=== PATIENT | male | born 1940 | race Caucasian/White ===

== ENCOUNTER 2018-11-26 01:32 | Inpatient (IN) | payer BC, MEDICARE ==
[~2018-11-26] VITALS: Ht 180.3 cm; Wt 71.8 kg
[2018-11-26] MEDS ORDERED: BISACODYL 10 MG SUPP PR PRN (05:30)
[2018-11-26] MEDS ORDERED: ONDANSETRON 2MG/ML, 2ML IVPush PRN (05:30)
[2018-11-26] MEDS: PLEASE ENTER ALLERGIES MC SCH ×2 (05:30→11:54)
[2018-11-26 05:54] VITALS: BP 121/64
[2018-11-26 06:21] LABS: MEAN CORPUSCULAR HEMOGLOBIN 28.1 pg (27.5-34.5); MEAN CORPUSCULAR HGB CONC 32.2 g/dL (33.2-36.2); MEAN CORPUSCULAR VOLUME 87.3 fL (81-97); MEAN PLATELET VOLUME 7.9 fL (7.4-10.4); PLATELET COUNT 373 x10^3/uL (130-400); RED BLOOD COUNT 4.42 x10^6/uL (4.38-5.82); RED CELL DISTRIBUTION WIDTH 14.9 % (9.4-14.8)
[2018-11-26 06:27] LABS: ALBUMIN 2.4 g/dL (3.4-5.0); ANION GAP 7 mmol/L (5-15); CALCIUM 8.8 mg/dL (8.5-10.1); CHLORIDE 99 mmol/L (98-107); CREATININE 0.77 mg/dL (0.7-1.3)
[2018-11-26] MEDS: CEFTRIAXONE PMX 1GM/50ML 50 ML IV SCH (06:28)
[2018-11-26] MEDS: ENOXAPARIN 40 MG/0.4 ML SQ SCH (06:29)
[2018-11-26] MEDS: ACETAMINOPHEN 325 MG TABLET PO PRN (06:29)
[2018-11-26 06:44] LABS: HEMOGLOBIN A1C 14.2 % (4.2-6.3); MD YES
[2018-11-26 06:45] LABS: BAND#(MANUAL) 0.97 x10^3/uL; BANDS%(MANUAL) 5 % (0-7); LYMPH#(MANUAL) 0.19 x10^3/uL (1-3.4); LYMPHS% (MANUAL) 1 % (22-44); MONOS#(MANUAL) 1.35 x10^3/uL (0.3-2.7); MONOS% (MANUAL) 7 % (2-9); SEG#(MANUAL) 16.79 x10^3/uL (1.8-6.8); SEGS% (MANUAL) 87 % (42-75)
[2018-11-26 06:46] LABS: <PLATELET ESTIMATE> ADEQUATE; <PLT MORPHOLOGY> NORMAL PLT MORPH; <RBC MORPHOLOGY> NORMAL
[2018-11-26] MEDS: INSULIN LISPRO 100 UNITS/ML, PEN SQ-INSULIN SCH ×4 (06:48→21:22)
[2018-11-26 07:02] VITALS: BP 119/64
[2018-11-26] MEDS: LACTATED RINGERS 1,000 ML IV SCH ×2 (07:15→12:00)
[2018-11-26] MEDS: SENNA/DOCUSATE TABLET PO SCH (09:34)
[2018-11-26 12:51] VITALS: BP 120/74
[2018-11-26 15:15] LABS: CULTURE INDICATED? YES; MICROSCOPIC INDICATED
[2018-11-26] MEDS: GUAIFENESIN 200 MG TABLET PO SCH ×2 (16:45→21:10)
[2018-11-26 17:18] LABS: THYROID STIMULATING HORMONE 0.911 mIU/L (0.358-3.740)
[2018-11-26] MEDS: DOXYCYCLINE 100 MG in DEXTROSE 5% 250 ML IV SCH (18:04)
[2018-11-26 19:31] VITALS: BP 112/62
[2018-11-26] MEDS: FLUTICASONE NASAL SPRAY 16GM NAS SCH (21:00)
[2018-11-26] MEDS: SODIUM CHLORIDE NASAL SPRAY 45ML BOTTLE NAS SCH (21:10)
[2018-11-27] MEDS: LACTATED RINGERS 1,000 ML IV SCH (00:11)
[2018-11-27 00:19] VITALS: BP 121/74
[2018-11-27 05:14] LABS: MEAN CORPUSCULAR HEMOGLOBIN 27.5 pg (27.5-34.5); MEAN CORPUSCULAR HGB CONC 31.9 g/dL (33.2-36.2); MEAN CORPUSCULAR VOLUME 86.3 fL (81-97); MEAN PLATELET VOLUME 8.1 fL (7.4-10.4); PLATELET COUNT 351 x10^3/uL (130-400); RED BLOOD COUNT 4.28 x10^6/uL (4.38-5.82); RED CELL DISTRIBUTION WIDTH 15.3 % (9.4-14.8)
[2018-11-27 05:33] LABS: CHLORIDE 97 mmol/L (98-107)
[2018-11-27 05:39] LABS: CALCIUM 8.7 mg/dL (8.5-10.1); CREATININE 0.77 mg/dL (0.7-1.3)
[2018-11-27 05:43] LABS: BASOPHILS # (AUTO) 0.08 x10^3/uL (0-0.1); BASOPHILS % (AUTO) 0 % (0-1); EOSINOPHILS # (AUTO) 0.05 x10^3/uL (0-0.4); EOSINOPHILS % (AUTO) 0 % (1-7); LYMPHOCYTES # (AUTO) 1.11 x10^3/uL (1-3.4); LYMPHOCYTES % (AUTO) 6 % (22-44); MD SCAN; MONOCYTES # (AUTO) 1.23 x10^3/uL (0.2-0.8); MONOCYTES % (AUTO) 7 % (2-9); NEUTROPHILS # (AUTO) 15.82 x10^3/uL (1.8-6.8); NEUTROPHILS % (AUTO) 87 % (42-75)
[2018-11-27] MEDS: GUAIFENESIN 200 MG TABLET PO SCH ×4 (06:00→21:34)
[2018-11-27] MEDS: DOXYCYCLINE 100 MG in DEXTROSE 5% 250 ML IV SCH ×2 (06:00→17:08)
[2018-11-27] MEDS: CEFTRIAXONE PMX 1GM/50ML 50 ML IV SCH (06:08)
[2018-11-27 06:14] LABS: ANION GAP 5 mmol/L (5-15)
[2018-11-27] MEDS: ENOXAPARIN 40 MG/0.4 ML SQ SCH (06:30)
[2018-11-27 08:03] VITALS: BP 152/78
[2018-11-27] MEDS: SODIUM CHLORIDE NASAL SPRAY 45ML BOTTLE NAS SCH ×2 (08:58→21:36)
[2018-11-27] MEDS: INSULIN LISPRO 100 UNITS/ML, PEN SQ-INSULIN SCH ×4 (08:59→21:35)
[2018-11-27] MEDS: SENNA/DOCUSATE TABLET PO SCH (08:59)
[2018-11-27] MEDS: FLUTICASONE NASAL SPRAY 16GM NAS SCH ×2 (10:06→21:35)
[2018-11-27 10:07] LABS: OCCULT BLOOD NEGATIVE (NEGATIVE)
[2018-11-27] MEDS ORDERED: ALBUTEROL/IPRATROPIUM 2.5MG/0.5MG, 3 ML NPPB PRN (11:00)
[2018-11-27 13:51] VITALS: BP 123/72
[2018-11-27] MEDS ORDERED: PHARMACOKINETIC CONSULTATION MC ONE (14:00)
[2018-11-27] MEDS ORDERED: PHARMACOKINETIC MONITORING MC PRN (14:00)
[2018-11-27] MEDS ORDERED: VANCOMYCIN PER PHARMACY MC PRN (14:00)
[2018-11-27] MEDS ORDERED: VANCOMYCIN 1,300 MG in SODIUM CHLORIDE 0.9% 250 ML IV SCH (14:30)
[2018-11-27 17:35] VITALS: BP 117/71
[2018-11-27 19:08] VITALS: BP 119/71
[2018-11-27] MEDS: INSULIN GLARGINE 100 UNITS/ML, PEN SQ-INSULIN SCH (21:57)
[2018-11-28 00:41] VITALS: BP 134/74
[2018-11-28] MEDS: ACETAMINOPHEN 325 MG TABLET PO PRN ×2 (01:41→15:10)
[2018-11-28 04:07] LABS: ANION GAP 3 mmol/L (5-15); CALCIUM 8.7 mg/dL (8.5-10.1); CHLORIDE 99 mmol/L (98-107); CREATININE 0.69 mg/dL (0.7-1.3)
[2018-11-28 04:13] LABS: TROPONIN I < 0.015 ng/mL (0.000-0.045)
[2018-11-28 04:15] LABS: BASOPHILS # (AUTO) 0.01 x10^3/uL (0-0.1); BASOPHILS % (AUTO) 0 % (0-1); EOSINOPHILS # (AUTO) 0.08 x10^3/uL (0-0.4); EOSINOPHILS % (AUTO) 1 % (1-7); LYMPHOCYTES # (AUTO) 1.26 x10^3/uL (1-3.4); LYMPHOCYTES % (AUTO) 8 % (22-44); MD NO; MEAN CORPUSCULAR HEMOGLOBIN 27.8 pg (27.5-34.5); MEAN CORPUSCULAR VOLUME 86.8 fL (81-97); MEAN PLATELET VOLUME 7.8 fL (7.4-10.4); MONOCYTES # (AUTO) 1.03 x10^3/uL (0.2-0.8); MONOCYTES % (AUTO) 7 % (2-9); NEUTROPHILS # (AUTO) 13.13 x10^3/uL (1.8-6.8); NEUTROPHILS % (AUTO) 85 % (42-75); PLATELET COUNT 380 x10^3/uL (130-400); RED BLOOD COUNT 4.44 x10^6/uL (4.38-5.82); RED CELL DISTRIBUTION WIDTH 15.1 % (9.4-14.8)
[2018-11-28] MEDS: ENOXAPARIN 40 MG/0.4 ML SQ SCH (06:09)
[2018-11-28] MEDS: GUAIFENESIN 200 MG TABLET PO SCH ×4 (06:09→20:54)
[2018-11-28] MEDS: DOXYCYCLINE 100 MG in DEXTROSE 5% 250 ML IV SCH (06:09)
[2018-11-28] MEDS ORDERED: ALBUTEROL/IPRATROPIUM 2.5MG/0.5MG, 3 ML NPPB PRN (07:00)
[2018-11-28 07:58] VITALS: BP 127/73
[2018-11-28] MEDS: SODIUM CHLORIDE NASAL SPRAY 45ML BOTTLE NAS SCH ×2 (09:00→20:58)
[2018-11-28] MEDS: SENNA/DOCUSATE TABLET PO SCH (09:01)
[2018-11-28] MEDS: FLUTICASONE NASAL SPRAY 16GM NAS SCH ×2 (09:02→20:58)
[2018-11-28] MEDS: INSULIN LISPRO 100 UNITS/ML, PEN SQ-INSULIN SCH ×4 (09:02→20:55)
[2018-11-28 10:01] LABS: TROPONIN I < 0.015 ng/mL (0.000-0.045)
[2018-11-28 14:08] VITALS: BP 147/79
[2018-11-28] MEDS: CEFAZOLIN 2,000 MG in SODIUM CHLORIDE 0.9% 50 ML IV SCH ×2 (15:49→23:50)
[2018-11-28] MEDS ORDERED: OMNIPAQUE 350 MG/ML, 150 ML BOTTLE ONE (17:28)
[2018-11-28 19:09] VITALS: BP 152/86
[2018-11-28] MEDS: INSULIN GLARGINE 100 UNITS/ML, PEN SQ-INSULIN SCH (20:54)
[2018-11-29 02:30] VITALS: BP 115/60
[2018-11-29] MEDS: ENOXAPARIN 40 MG/0.4 ML SQ SCH (05:56)
[2018-11-29] MEDS: GUAIFENESIN 200 MG TABLET PO SCH ×4 (05:56→21:00)
[2018-11-29 06:10] LABS: HCT (SEDRATE) 37.1 % (39.2-51.8)
[2018-11-29 06:11] LABS: MEAN CORPUSCULAR HEMOGLOBIN 27.7 pg (27.5-34.5); MEAN CORPUSCULAR HGB CONC 32.2 g/dL (33.2-36.2); MEAN CORPUSCULAR VOLUME 86.2 fL (81-97); MEAN PLATELET VOLUME 7.8 fL (7.4-10.4); PLATELET COUNT 361 x10^3/uL (130-400); RED BLOOD COUNT 4.34 x10^6/uL (4.38-5.82); RED CELL DISTRIBUTION WIDTH 15.5 % (9.4-14.8)
[2018-11-29 06:25] LABS: ANION GAP 6 mmol/L (5-15); CALCIUM 8.4 mg/dL (8.5-10.1); CHLORIDE 100 mmol/L (98-107); CREATININE 0.62 mg/dL (0.7-1.3)
[2018-11-29 06:46] LABS: BASOPHILS % (AUTO) 0 % (0-1); EOSINOPHILS # (AUTO) 0.01 x10^3/uL (0-0.4); EOSINOPHILS % (AUTO) 0 % (1-7); LYMPHOCYTES # (AUTO) 0.79 x10^3/uL (1-3.4); LYMPHOCYTES % (AUTO) 5 % (22-44); MD SCAN; MONOCYTES # (AUTO) 0.58 x10^3/uL (0.2-0.8); MONOCYTES % (AUTO) 4 % (2-9); NEUTROPHILS # (AUTO) 14.71 x10^3/uL (1.8-6.8); NEUTROPHILS % (AUTO) 91 % (42-75)
[2018-11-29] MEDS: INSULIN LISPRO 100 UNITS/ML, PEN SQ-INSULIN SCH ×4 (07:00→21:41)
[2018-11-29 07:31] VITALS: BP 115/68
[2018-11-29] MEDS: CEFAZOLIN 2,000 MG in SODIUM CHLORIDE 0.9% 50 ML IV SCH ×2 (08:27→16:04)
[2018-11-29] MEDS: POTASSIUM CHLORIDE 20 MEQ TAB.ER.PRT PO SCH ×2 (08:28→16:25)
[2018-11-29] MEDS: SENNA/DOCUSATE TABLET PO SCH (08:28)
[2018-11-29] MEDS: FLUTICASONE NASAL SPRAY 16GM NAS SCH ×2 (08:28→21:00)
[2018-11-29] MEDS: SODIUM CHLORIDE NASAL SPRAY 45ML BOTTLE NAS SCH ×2 (08:28→21:00)
[2018-11-29] MEDS ORDERED: FLUMAZENIL 0.1 MG/1 ML, 5ML ONE (10:43)
[2018-11-29] MEDS ORDERED: FENTANYL PF 100 MCG/2ML ONE (10:43)
[2018-11-29] MEDS ORDERED: MIDAZOLAM 1 MG/ML, 5ML ONE (10:43)
[2018-11-29] MEDS ORDERED: NALOXONE 1 MG/ML, 2ML ONE (10:44)
[2018-11-29] MEDS ORDERED: LIDOCAINE 1%, 20ML ONE (11:12)
[2018-11-29 14:09] VITALS: BP 100/59
[2018-11-29] MEDS ORDERED: GADOBUTROL 7.5 MMOL/7.5 ML PFS ONE (17:40)
[2018-11-29 18:24] VITALS: BP 124/72
[2018-11-29] MEDS ORDERED: INSULIN GLARGINE 100 UNITS/ML, PEN SQ-INSULIN SCH (21:00)
[2018-11-30] MEDS: CEFAZOLIN 2,000 MG in SODIUM CHLORIDE 0.9% 50 ML IV SCH ×3 (00:05→18:24)
[2018-11-30 00:09] VITALS: BP 109/65
[2018-11-30] MEDS: ACETAMINOPHEN 325 MG TABLET PO PRN (02:19)
[2018-11-30] MEDS: ENOXAPARIN 40 MG/0.4 ML SQ SCH (05:59)
[2018-11-30] MEDS: POLYETHYLENE GLYCOL 17 GM PACKET PO PRN (05:59)
[2018-11-30] MEDS: GUAIFENESIN 200 MG TABLET PO SCH ×6 (05:59→21:12)
[2018-11-30 06:17] LABS: BASOPHILS # (AUTO) 0.11 x10^3/uL (0-0.1); BASOPHILS % (AUTO) 1 % (0-1); EOSINOPHILS # (AUTO) 0.05 x10^3/uL (0-0.4); EOSINOPHILS % (AUTO) 0 % (1-7); LYMPHOCYTES # (AUTO) 0.88 x10^3/uL (1-3.4); LYMPHOCYTES % (AUTO) 6 % (22-44); MD NO; MEAN CORPUSCULAR HEMOGLOBIN 27.8 pg (27.5-34.5); MEAN CORPUSCULAR VOLUME 86.8 fL (81-97); MEAN PLATELET VOLUME 7.8 fL (7.4-10.4); MONOCYTES # (AUTO) 0.79 x10^3/uL (0.2-0.8); MONOCYTES % (AUTO) 6 % (2-9); NEUTROPHILS # (AUTO) 12.53 x10^3/uL (1.8-6.8); NEUTROPHILS % (AUTO) 87 % (42-75); PLATELET COUNT 353 x10^3/uL (130-400); RED BLOOD COUNT 4.11 x10^6/uL (4.38-5.82); RED CELL DISTRIBUTION WIDTH 15.4 % (9.4-14.8)
[2018-11-30 06:30] LABS: ALANINE AMINOTRANSFERASE 37 U/L (12-78); ALBUMIN 1.8 g/dL (3.4-5.0); ANION GAP 2 mmol/L (5-15); CALCIUM 8.5 mg/dL (8.5-10.1); CHLORIDE 102 mmol/L (98-107); CREATININE 0.87 mg/dL (0.7-1.3)
[2018-11-30 06:31] LABS: ALKALINE PHOSPHATASE 308 U/L (45-117); BILIRUBIN,TOTAL 0.4 mg/dL (0.2-1.0); TOTAL PROTEIN 5.8 g/dL (6.4-8.2)
[2018-11-30 07:29] VITALS: BP 121/68
[2018-11-30] MEDS: INSULIN LISPRO 100 UNITS/ML, PEN SQ-INSULIN SCH ×4 (08:43→21:04)
[2018-11-30] MEDS: INSULIN GLARGINE 100 UNITS/ML, PEN SQ-INSULIN SCH ×2 (08:43→21:10)
[2018-11-30] MEDS: SODIUM CHLORIDE NASAL SPRAY 45ML BOTTLE NAS SCH ×2 (09:00→21:10)
[2018-11-30] MEDS ORDERED: POTASSIUM CHLORIDE 20 MEQ TAB.ER.PRT PO SCH (09:00)
[2018-11-30] MEDS: SENNA/DOCUSATE TABLET PO SCH (09:53)
[2018-11-30] MEDS: FLUTICASONE NASAL SPRAY 16GM NAS SCH ×3 (09:53→21:37)
[2018-11-30 12:36] VITALS: BP 98/59
[2018-11-30 19:16] VITALS: BP 112/65
[2018-12-01] MEDS: CEFAZOLIN 2,000 MG in SODIUM CHLORIDE 0.9% 50 ML IV SCH ×3 (00:28→17:24)
[2018-12-01 01:57] VITALS: BP 117/63
[2018-12-01] MEDS: GUAIFENESIN 200 MG TABLET PO SCH ×4 (05:38→20:58)
[2018-12-01] MEDS: ENOXAPARIN 40 MG/0.4 ML SQ SCH (05:38)
[2018-12-01 05:50] LABS: MEAN CORPUSCULAR HEMOGLOBIN 28.3 pg (27.5-34.5); MEAN CORPUSCULAR HGB CONC 32.6 g/dL (33.2-36.2); MEAN CORPUSCULAR VOLUME 86.8 fL (81-97); MEAN PLATELET VOLUME 7.9 fL (7.4-10.4); PLATELET COUNT 380 x10^3/uL (130-400); RED BLOOD COUNT 4.26 x10^6/uL (4.38-5.82); RED CELL DISTRIBUTION WIDTH 15.1 % (9.4-14.8)
[2018-12-01 06:11] LABS: BASOPHILS # (AUTO) 0.05 x10^3/uL (0-0.1); BASOPHILS % (AUTO) 0 % (0-1); EOSINOPHILS # (AUTO) 0.05 x10^3/uL (0-0.4); EOSINOPHILS % (AUTO) 0 % (1-7); LYMPHOCYTES # (AUTO) 0.99 x10^3/uL (1-3.4); LYMPHOCYTES % (AUTO) 6 % (22-44); MD SCAN; MONOCYTES # (AUTO) 0.47 x10^3/uL (0.2-0.8); MONOCYTES % (AUTO) 3 % (2-9); NEUTROPHILS # (AUTO) 15.61 x10^3/uL (1.8-6.8); NEUTROPHILS % (AUTO) 91 % (42-75)
[2018-12-01] MEDS: INSULIN LISPRO 100 UNITS/ML, PEN SQ-INSULIN SCH ×4 (07:00→21:10)
[2018-12-01 07:50] VITALS: BP 127/69
[2018-12-01] MEDS: INSULIN GLARGINE 100 UNITS/ML, PEN SQ-INSULIN SCH ×2 (09:32→21:11)
[2018-12-01] MEDS: FLUTICASONE NASAL SPRAY 16GM NAS SCH ×2 (09:32→20:59)
[2018-12-01] MEDS: SENNA/DOCUSATE TABLET PO SCH (09:32)
[2018-12-01] MEDS: SODIUM CHLORIDE NASAL SPRAY 45ML BOTTLE NAS SCH ×2 (09:33→20:59)
[2018-12-01 17:12] VITALS: BP 100/59
[2018-12-01 19:24] VITALS: BP 114/62
[2018-12-02] MEDS: CEFAZOLIN 2,000 MG in SODIUM CHLORIDE 0.9% 50 ML IV SCH ×3 (01:30→17:47)
[2018-12-02 01:39] VITALS: BP 129/66
[2018-12-02 05:35] LABS: MEAN CORPUSCULAR HEMOGLOBIN 27.7 pg (27.5-34.5); MEAN CORPUSCULAR HGB CONC 31.8 g/dL (33.2-36.2); MEAN CORPUSCULAR VOLUME 87.1 fL (81-97); MEAN PLATELET VOLUME 8.1 fL (7.4-10.4); PLATELET COUNT 433 x10^3/uL (130-400); RED BLOOD COUNT 4.24 x10^6/uL (4.38-5.82)
[2018-12-02] MEDS: ENOXAPARIN 40 MG/0.4 ML SQ SCH (05:44)
[2018-12-02 05:45] LABS: ALBUMIN 1.8 g/dL (3.4-5.0); ANION GAP 2 mmol/L (5-15); CALCIUM 8.8 mg/dL (8.5-10.1); CHLORIDE 100 mmol/L (98-107)
[2018-12-02] MEDS: GUAIFENESIN 200 MG TABLET PO SCH ×4 (05:46→20:35)
[2018-12-02 05:49] LABS: ALANINE AMINOTRANSFERASE 37 U/L (12-78); ALKALINE PHOSPHATASE 485 U/L (45-117); BILIRUBIN,TOTAL 0.8 mg/dL (0.2-1.0); CREATININE 0.68 mg/dL (0.7-1.3); TOTAL PROTEIN 6.1 g/dL (6.4-8.2)
[2018-12-02 06:28] LABS: BASOPHILS # (AUTO) 0.07 x10^3/uL (0-0.1); BASOPHILS % (AUTO) 1 % (0-1); EOSINOPHILS # (AUTO) 0.05 x10^3/uL (0-0.4); EOSINOPHILS % (AUTO) 0 % (1-7); LYMPHOCYTES # (AUTO) 1.17 x10^3/uL (1-3.4); LYMPHOCYTES % (AUTO) 8 % (22-44); MONOCYTES # (AUTO) 0.79 x10^3/uL (0.2-0.8); MONOCYTES % (AUTO) 6 % (2-9); NEUTROPHILS # (AUTO) 12.05 x10^3/uL (1.8-6.8); NEUTROPHILS % (AUTO) 85 % (42-75)
[2018-12-02 06:29] LABS: MD SCAN
[2018-12-02 07:41] VITALS: BP 114/69
[2018-12-02] MEDS: INSULIN LISPRO 100 UNITS/ML, PEN SQ-INSULIN SCH ×4 (07:57→20:38)
[2018-12-02] MEDS: SENNA/DOCUSATE TABLET PO SCH ×2 (09:00→11:23)
[2018-12-02] MEDS ORDERED: INSULIN GLARGINE 100 UNITS/ML, PEN SQ-INSULIN SCH (09:00)
[2018-12-02] MEDS ORDERED: MAGNESIUM CITRATE 300ML ORAL SOL PO ONE ×2 (10:00→16:00)
[2018-12-02] MEDS: SODIUM CHLORIDE NASAL SPRAY 45ML BOTTLE NAS SCH ×2 (11:21→20:36)
[2018-12-02] MEDS: FLUTICASONE NASAL SPRAY 16GM NAS SCH ×2 (11:21→20:36)
[2018-12-02 12:59] VITALS: BP 103/64
[2018-12-02] MEDS ORDERED: OMNIPAQUE 350 MG/ML, 100ML BOTTLE ONE (15:21)
[2018-12-02 19:36] VITALS: BP 114/61
[2018-12-02] MEDS: INSULIN GLARGINE 100 UNITS/ML, PEN SQ-INSULIN SCH (20:38)
[2018-12-03] MEDS: CEFAZOLIN 2,000 MG in SODIUM CHLORIDE 0.9% 50 ML IV SCH ×3 (00:22→18:05)
[2018-12-03 00:41] VITALS: BP 120/65
[2018-12-03] MEDS: GUAIFENESIN 200 MG TABLET PO SCH ×5 (03:24→22:00)
[2018-12-03] MEDS: POLYETHYLENE GLYCOL 17 GM PACKET PO PRN ×2 (06:00→09:47)
[2018-12-03] MEDS: ENOXAPARIN 40 MG/0.4 ML SQ SCH (06:01)
[2018-12-03 06:08] LABS: MEAN CORPUSCULAR HEMOGLOBIN 27.2 pg (27.5-34.5); MEAN CORPUSCULAR HGB CONC 31.7 g/dL (33.2-36.2); MEAN CORPUSCULAR VOLUME 85.8 fL (81-97); MEAN PLATELET VOLUME 7.4 fL (7.4-10.4); PLATELET COUNT 459 x10^3/uL (130-400); RED BLOOD COUNT 4.23 x10^6/uL (4.38-5.82)
[2018-12-03 06:32] LABS: ALBUMIN 1.8 g/dL (3.4-5.0); CALCIUM 8.8 mg/dL (8.5-10.1)
[2018-12-03 06:37] VITALS: BP 112/62
[2018-12-03 06:47] LABS: MD SCAN
[2018-12-03 06:48] LABS: BASOPHILS # (AUTO) 0.12 x10^3/uL (0-0.1); BASOPHILS % (AUTO) 1 % (0-1); EOSINOPHILS # (AUTO) 0.06 x10^3/uL (0-0.4); EOSINOPHILS % (AUTO) 1 % (1-7); LYMPHOCYTES # (AUTO) 0.84 x10^3/uL (1-3.4); LYMPHOCYTES % (AUTO) 7 % (22-44); MONOCYTES # (AUTO) 0.94 x10^3/uL (0.2-0.8); MONOCYTES % (AUTO) 7 % (2-9); NEUTROPHILS # (AUTO) 10.93 x10^3/uL (1.8-6.8); NEUTROPHILS % (AUTO) 85 % (42-75)
[2018-12-03 06:55] LABS: ANION GAP 3 mmol/L (5-15); CHLORIDE 98 mmol/L (98-107)
[2018-12-03 07:18] LABS: ALANINE AMINOTRANSFERASE 31 U/L (12-78); CREATININE 0.86 mg/dL (0.7-1.3)
[2018-12-03 07:21] LABS: ALKALINE PHOSPHATASE 502 U/L (45-117); BILIRUBIN,TOTAL 0.3 mg/dL (0.2-1.0); TOTAL PROTEIN 6.3 g/dL (6.4-8.2)
[2018-12-03] MEDS: SODIUM CHLORIDE NASAL SPRAY 45ML BOTTLE NAS SCH ×2 (08:05→22:03)
[2018-12-03] MEDS: FLUTICASONE NASAL SPRAY 16GM NAS SCH ×3 (08:05→22:02)
[2018-12-03] MEDS: INSULIN GLARGINE 100 UNITS/ML, PEN SQ-INSULIN SCH ×3 (08:06→22:01)
[2018-12-03] MEDS: INSULIN LISPRO 100 UNITS/ML, PEN SQ-INSULIN SCH ×4 (08:06→22:02)
[2018-12-03 13:22] VITALS: BP 116/71
[2018-12-03] MEDS ORDERED: [UNRECOGNIZED DRUG - OTHER] RC PRN (17:30)
[2018-12-03] MEDS: MINERAL OIL 10 ML VIAL MC SCH (18:05)
[2018-12-03 18:39] VITALS: BP 118/66
[2018-12-04 01:05] VITALS: BP 135/73
[2018-12-04] MEDS: CEFAZOLIN 2,000 MG in SODIUM CHLORIDE 0.9% 50 ML IV SCH ×3 (02:39→18:31)
[2018-12-04] MEDS: GUAIFENESIN 200 MG TABLET PO SCH ×4 (05:29→21:00)
[2018-12-04 06:06] LABS: ALANINE AMINOTRANSFERASE 20 U/L (12-78); ALBUMIN 1.8 g/dL (3.4-5.0); ANION GAP 5 mmol/L (5-15); CALCIUM 8.6 mg/dL (8.5-10.1); CHLORIDE 101 mmol/L (98-107); CREATININE 0.61 mg/dL (0.7-1.3)
[2018-12-04 06:09] LABS: ALKALINE PHOSPHATASE 463 U/L (45-117); BILIRUBIN,TOTAL 0.3 mg/dL (0.2-1.0); TOTAL PROTEIN 6.1 g/dL (6.4-8.2)
[2018-12-04 06:24] LABS: MEAN CORPUSCULAR HEMOGLOBIN 27.1 pg (27.5-34.5); MEAN CORPUSCULAR HGB CONC 31.8 g/dL (33.2-36.2); MEAN CORPUSCULAR VOLUME 85.3 fL (81-97); MEAN PLATELET VOLUME 6.8 fL (7.4-10.4); PLATELET COUNT 497 x10^3/uL (130-400)
[2018-12-04 06:30] VITALS: BP 120/70
[2018-12-04] MEDS: INSULIN LISPRO 100 UNITS/ML, PEN SQ-INSULIN SCH ×4 (07:00→20:02)
[2018-12-04] MEDS: MINERAL OIL 10 ML VIAL MC SCH (07:24)
[2018-12-04] MEDS: SENNA/DOCUSATE TABLET PO SCH (07:25)
[2018-12-04 07:31] LABS: BASOPHILS % (AUTO) 0 % (0-1); EOSINOPHILS # (AUTO) 0.13 x10^3/uL (0-0.4); EOSINOPHILS % (AUTO) 1 % (1-7); LYMPHOCYTES # (AUTO) 1.12 x10^3/uL (1-3.4); LYMPHOCYTES % (AUTO) 8 % (22-44); MD SCAN; MONOCYTES # (AUTO) 0.68 x10^3/uL (0.2-0.8); MONOCYTES % (AUTO) 5 % (2-9); NEUTROPHILS # (AUTO) 12.25 x10^3/uL (1.8-6.8); NEUTROPHILS % (AUTO) 86 % (42-75)
[2018-12-04] MEDS: INSULIN GLARGINE 100 UNITS/ML, PEN SQ-INSULIN SCH ×3 (08:05→20:03)
[2018-12-04] MEDS: FLUTICASONE NASAL SPRAY 16GM NAS SCH ×2 (08:09→20:03)
[2018-12-04] MEDS: SODIUM CHLORIDE NASAL SPRAY 45ML BOTTLE NAS SCH ×2 (08:09→20:03)
[2018-12-04] MEDS ORDERED: MINERAL OIL 10 ML VIAL MC SCH (09:00)
[2018-12-04] MEDS ORDERED: OMNIPAQUE 350 MG/ML, 100ML BOTTLE ONE (09:01)
[2018-12-04] MEDS ORDERED: MINERAL OIL LIGHT PO ONE (10:30)
[2018-12-04 15:08] VITALS: BP 96/60
[2018-12-04 19:09] VITALS: BP 101/61
[2018-12-05 00:48] VITALS: BP 107/62
[2018-12-05] MEDS: ACETAMINOPHEN 325 MG TABLET PO PRN (01:16)
[2018-12-05] MEDS: CEFAZOLIN 2,000 MG in SODIUM CHLORIDE 0.9% 50 ML IV SCH ×2 (01:40→10:34)
[2018-12-05] MEDS: GUAIFENESIN 200 MG TABLET PO SCH ×2 (06:00→11:00)
[2018-12-05 06:01] LABS: BASOPHILS # (AUTO) 0.03 x10^3/uL (0-0.1); BASOPHILS % (AUTO) 0 % (0-1); EOSINOPHILS # (AUTO) 0.13 x10^3/uL (0-0.4); EOSINOPHILS % (AUTO) 1 % (1-7); LYMPHOCYTES # (AUTO) 1.13 x10^3/uL (1-3.4); LYMPHOCYTES % (AUTO) 8 % (22-44); MD NO; MEAN CORPUSCULAR HEMOGLOBIN 28.2 pg (27.5-34.5); MEAN CORPUSCULAR HGB CONC 32.6 g/dL (33.2-36.2); MEAN CORPUSCULAR VOLUME 86.6 fL (81-97); MEAN PLATELET VOLUME 7.6 fL (7.4-10.4); MONOCYTES # (AUTO) 1.09 x10^3/uL (0.2-0.8); MONOCYTES % (AUTO) 8 % (2-9); NEUTROPHILS # (AUTO) 11.51 x10^3/uL (1.8-6.8); NEUTROPHILS % (AUTO) 83 % (42-75); PLATELET COUNT 560 x10^3/uL (130-400); RED CELL DISTRIBUTION WIDTH 15.4 % (9.4-14.8)
[2018-12-05 07:14] VITALS: BP 144/70
[2018-12-05] MEDS ORDERED: MAGNESIUM CITRATE 300ML ORAL SOL PO ONE (08:00)
[2018-12-05] MEDS: SODIUM CHLORIDE NASAL SPRAY 45ML BOTTLE NAS SCH (08:12)
[2018-12-05] MEDS: FLUTICASONE NASAL SPRAY 16GM NAS SCH (08:12)
[2018-12-05] MEDS: SENNA/DOCUSATE TABLET PO SCH (08:12)
[2018-12-05] MEDS: INSULIN LISPRO 100 UNITS/ML, PEN SQ-INSULIN SCH ×2 (08:13→11:17)
[2018-12-05] MEDS ORDERED: INSULIN GLARGINE 100 UNITS/ML, PEN SQ-INSULIN SCH (09:00)
[2018-12-05] MEDS ORDERED: INSU100I13 SQ-INSULIN (09:58)
[2018-12-05] MEDS ORDERED: INSU100I11 SQ-INSULIN (09:58)
[2018-12-05] MEDS ORDERED: GUAI200T3 PO (09:58)
[2018-12-05] MEDS ORDERED: FLUT16SP24 NAS (09:58)
[2018-12-05] MEDS ORDERED: SENN1TAB19 PO (09:58)
[2018-12-05] MEDS ORDERED: ACET325T26 PO (09:58)
== END 2018-12-05 15:27 | DRG 871 ==
LOC: 3NE 05:06 → 5SO 07:45 → 4EST 11-27 17:26 → 4WST 11-28 22:38
PROVIDERS: ADMIT Family Medicine; ATTEND Family Medicine
PROC: 0T9130Z Drainage of Left Kidney with Drainage Device, Percutaneous Approach (ICD-10-PCS; principal; 2018-11-28)
PROC: 02HV33Z Insertion of Infusion Device into Superior Vena Cava, Percutaneous Approach (ICD-10-PCS; 2018-12-05)
PROC: B5181ZA Fluoroscopy of Superior Vena Cava using Low Osmolar Contrast, Guidance (ICD-10-PCS; 2018-12-05)
PROC: B548ZZA Ultrasonography of Superior Vena Cava, Guidance (ICD-10-PCS; 2018-12-05)
DX: A41.01 Sepsis due to Methicillin susceptible Staphylococcus aureus (principal); J18.9 Pneumonia, unspecified organism; E43 Unspecified severe protein-calorie malnutrition; N15.1 Renal and perinephric abscess; E87.1 Hypo-osmolality and hyponatremia; J90 Pleural effusion, not elsewhere classified; N12 Tubulo-interstitial nephritis, not specified as acute or chronic; D64.9 Anemia, unspecified; D73.89 Other diseases of spleen; E11.65 Type 2 diabetes mellitus with hyperglycemia; Z68.22 Body mass index [BMI] 22.0-22.9, adult; E86.0 Dehydration; E87.6 Hypokalemia; G89.29 Other chronic pain; M50.90 Cervical disc disorder, unspecified, unspecified cervical region; M19.90 Unspecified osteoarthritis, unspecified site; K59.00 Constipation, unspecified; D73.5 Infarction of spleen; Z87.442 Personal history of urinary calculi; Z87.891 Personal history of nicotine dependence; L89.152 Pressure ulcer of sacral region, stage 2; L03.011 Cellulitis of right finger
CPT/HCPCS: 36415; 36573; 49406; 70450; 71046; 71250; 72156; 74160; 74177; 74178; 75989; 80048; 80053; 81001; 82040; 82272; 82962; 83036; 83735; 84145; 84443; 84484; 85025; 85651; 86140; 87040; 87070; 87075; 87077; 87086; 87147; 87186; 87205; 93005; 93306; 99156; 99157; A9585; G0378; J0690; J0696; J1650; J2250; J3010; J3370; J7060; Q9967; C1729; C1751; C1769; J1815; J2310; J7050; J7120